=== PATIENT | male | born 1975 | race Caucasian/White ===

== ENCOUNTER 2024-05-20 09:38 | Outpatient (CLI) | payer MEDICARE | END 2024-05-20 09:39 | disposition home or self-care (01) | LOC: CSHCT 09:38 | PROVIDERS: ATTEND Family Medicine | DX: Z12.2 Encounter for screening for malignant neoplasm of respiratory organs (principal); F17.210 Nicotine dependence, cigarettes, uncomplicated | CPT/HCPCS: 71271 ==

== ENCOUNTER 2025-01-15 10:18 | Emergency (ER) | payer OTHER ==
[2025-01-15] MEDS ORDERED: Droperidol 5 MG/2 ML VIAL ONE (10:54)
[2025-01-15 11:01] LABS: Actual Bicarbonate (HCO3v) 22.4 mEq/L (22-28); Analyzer IN Cardio CS ER; Base Excess -0.3 mEq/L (-2 - +2); Calcium, Ionized (venous) 1.11 mmol/L (1.16-1.32); Chloride (VBG) 102 mmol/L (98-106); Critical Notified Whom: FERME; Hematocrit-VBG 35 % (42.0-52.0); Hemoglobin (Hb) 11.9 g/dL (13.1-17.2); Potassium (VBG) 3.76 mmol/L (3.70-5.30); Puncture Site Other Site; RapidComm Collect By LAB; Sodium 141 mmol/L (133-146)
[2025-01-15 11:08] LABS: Hematocrit 31.8 % (38.8-50.0); Hemoglobin 11.3 g/dL (13.5-17.5); Mean Corpuscular Hemoglobin 37.4 pg (27.0-33.0); Mean Corpuscular Volume 105.3 fL (81.2-95.1); Red Blood Cell (RBC) Count 3.02 10x6/uL (4.32-5.72); White Blood Cell (WBC) Count 2.48 10x3/uL (3.5-10.5)
[2025-01-15 11:22] LABS: Platelet Count 88 10x3/uL (150-450)
[2025-01-15 11:25] LABS: Troponin I Less than 0.010 ng/mL (< 0.028)
[2025-01-15 11:29] LABS: Platelet Adequacy Comment Appears Decreased
[2025-01-15 11:34] LABS: ALT (SGPT) 62 U/L (Less than 45); AST (SGOT) 22 U/L (11-34); Albumin 3.9 g/dL (3.1-4.5); Alkaline Phosphatase 62 U/L (40-110); Anion Gap 20 mmol/L (10-20); BUN (Urea Nitrogen) 26 mg/dL (8.4-25.7); Bilirubin, Total 1.1 mg/dL (0.3-1.2); Calc. Creatinine Clearance 0 mL/min (70-130); Calcium 8.6 mg/dL (7.8-10.44); Carbon Dioxide 22 mmol/L (22-29); Chloride 105 mmol/L (98-107); Globulin 3.2 g/dL (2.4-3.5); Glucose 234 mg/dL (70-105); Magnesium 1.9 mg/dL (1.6-2.6); Potassium 3.9 mmol/L (3.5-5.1); Sodium 143 mmol/L (136-145)
[2025-01-15 11:52] LABS: Lipase Less than 4 U/L (8-78)
[2025-01-15 12:09] LABS: Glucose, Urine (Dipstick) 250 mg/dL (Negative); Leukocyte Negative (Negative); Protein, Urine (Dipstick) 30 mg/dl (Neg-Trace); Specific Gravity, Urine 1.010 (1.005-1.030)
[2025-01-15 12:27] LABS: Bacteria/HPF Rare-Few HPF (None Seen); CAUTI Indications for Culture Pelvic or flank pain; RBC/HPF 0-3 HPF (0-3); WBC/HPF 0-3 HPF (0-3)
[2025-01-15 12:28] LABS: Urine Culture Reflex No No
[2025-01-15 13:12] LABS: HIV (1/2) Antibody/Antigen Non-Reactive (NonReactive); HIV 1/2 INDEX 0.07 S/CO (<1.00)
[2025-01-15] MEDS ORDERED: Iopamidol 300 61% 100 ML VIAL FS ONE (13:23)
[2025-01-15] MEDS ORDERED: ACYCLOVIR SODIUM IVPB SCH (13:45)
[2025-01-15] MEDS ORDERED: SODIUM CHLORIDE 0.9% IVPB SCH (13:45)
[2025-01-15 14:56] LABS: #Basophils Less than 0.03 10x3/uL (0.0-0.2); #Eosinophils 0.04 10x3/uL (0.0-0.5); #Monocytes 0.17 10x3/uL (0.0-1.1); #Neutrophils 1.58 10x3/uL (1.5-8.4); %Basophils 0.0 % (0.0-2.0); %Eosinophils 1.6 % (0.0-6.0); %Lymphocytes 27.4 % (18.0-47.0); %Monocytes 6.9 % (0.0-10.0); %Neutrophils 63.7 % (40.0-75.0)
[2025-01-15 17:45] LABS: Hep A IgM AB NONREACTIVE (NonReactive); Hep A IgM S/CO 0.12 S/CO (0-0.79); Hep B Core IgM Index 0.08 S/CO (0-0.79); Hep C IgG Ab NONREACTIVE S/CO (NonReactive); Hep C Index 0.13 S/CO (0-0.79)
[2025-01-15 18:20] LABS: Hep B Surf Ag NONREACTIVE S/CO (NonReactive)
[2025-01-18 04:09] LABS: CMV IgM AB Less than 30.0 AU/mL (0.0-29.9)
[2025-01-18 08:38] LABS: HSV 1 - DNA Negative (Negative); HSV 2 - DNA Negative (Negative)
== END 2025-01-15 15:36 ==
LOC: CSHERS 10:18
DX: K13.70 Unspecified lesions of oral mucosa (principal); E86.0 Dehydration; K20.90 Esophagitis, unspecified without bleeding; E88.89 Other specified metabolic disorders; E10.9 Type 1 diabetes mellitus without complications; F17.210 Nicotine dependence, cigarettes, uncomplicated; Z79.4 Long term (current) use of insulin
CPT/HCPCS: 70491; 74177; 80053; 80074; 81001; 82010; 82805; 83605; 83690; 83735; 84100; 84484; 85025; 86140; 86645; 87040; 87389; 87529 ×2; 93005; 94760; J0133; J1790; 36415; 96361; 96365; 96375; Q9967